=== PATIENT | male | born 1990 | race Caucasian/White ===

== ENCOUNTER 2018-09-01 04:53 | Emergency (ER) | payer BC ==
--- NOTE | 2018-09-01 05:37 | EDM.PDOC ---
ED HPI GENERAL MEDICAL PROBLEM - General Chief Complaint: Abdominal Pain Stated Complaint: RIGHT SIDE ABD PAIN Time Seen by Provider: 09/01/18 05:32 Source of Information: Reports: Patient History Limitations: Reports: No Limitations - History of Present Illness INITIAL COMMENTS - FREE TEXT/NARRATIVE: pt has pain in the rt lower abdoman. Earlier it started in his back and moved forward. He has not vomited and he has no pain when he voids. Onset: Today Duration: Hour(s):, Getting Worse, Other (pt is rating his pain as a 8. ) Location: Reports: Abdomen, Back Associated Symptoms: Reports: No Other Symptoms Treatments CRIMINAL INTELLIGENCE SPECIALIST: Reports: Other (see below) Other Treatments CRIMINAL INTELLIGENCE SPECIALIST: unknown Right Lower Abdomen Pain Score (Numeric/FACES): 8 - Related Data Allergies Allergy/AdvReac Type Severity Reaction Status Date / Time No Known Allergies Allergy Verified 09/01/18 05:14 Home Meds: Home Meds NK [No Known Home Meds] 09/01/18 [History] Past Medical History Musculoskeletal History: Reports: Fracture, Other (See Below) - Past Surgical History Musculoskeletal Surgical History: Reports: Other (See Below) Other Musculoskeletal Surgeries/Procedures:: left upper arm (humerus. Social & Family History - Tobacco Use Smoking Status *Q: Never Smoker Second Hand Smoke Exposure: No - Caffeine Use Caffeine Use: Reports: Coffee - Alcohol Use Days Per Week of Alcohol Use: 7 Number of Drinks Per Day: 2 Total Drinks Per Week: 14 - Recreational Drug Use Recreational Drug Use: No ED ROS GENERAL - Review of Systems Review Of Systems: See Below Constitutional: Reports: No Symptoms HEENT: Reports: No Symptoms Respiratory: Reports: No Symptoms Cardiovascular: Reports: No Symptoms Endocrine: Reports: No Symptoms GI/Abdominal: Reports: Abdominal Pain : Reports: No Symptoms Musculoskeletal: Reports: No Symptoms Skin: Reports: No Symptoms ED EXAM, RENAL/ - Physical Exam Exam: See Below Text/Narrative:: pt arrived with pain in the rt lower abdoman. This did start in the back area. Exam Limited By: No Limitations General Appearance: Alert, Anxious, Moderate Distress Ears: Normal TMs Nose: Normal Inspection Throat/Mouth: Normal Inspection Head: Atraumatic Neck: Normal Inspection Respiratory/Chest: No Respiratory Distress Cardiovascular: Regular Rate, Rhythm GI/Abdominal: Tender, Other (pt is most tender in the very lowrt over the bladder area. ) (Male) Exam: Deferred Rectal (Males) Exam: Deferred Back Exam: Normal Inspection Extremities: Normal Inspection Neurological: Alert, Oriented, Normal Cognition Course - Vital Signs Last Recorded V/S: Last Vital Signs Temp 35.6 C 09/01/18 05:10 Pulse 56 L 09/01/18 05:10 Resp 14 09/01/18 05:10 BP 117/65 09/01/18 05:10 Pulse Ox 97 09/01/18 05:10 - Orders/Labs/Meds Orders: Active Orders 24 hr Category Date Time Status Sodium Chloride 0.9% [Normal Saline] 1,000 ml Med 09/01/18 06:00 Ordered IV ASDIRECTED Medication Orders Sodium Chloride (Normal Saline) 1,000 mls @ 999 mls/hr IV ASDIRECTED RAFAELA Last Admin: 09/01/18 06:20 Dose: 999 mls/hr Labs: Laboratory Tests 09/01/18 09/01/18 09/01/18 Range/Units 05:26 05:26 05:26 WBC 7.4 (4.5-11.0) K/uL RBC 4.81 (4.30-5.90) M/uL Hgb 13.8 (12.0-15.0) g/dL Hct 41.3 (40.0-54.0) % MCV 86 (80-98) fL MCH 29 (27-31) pg MCHC 33 (32-36) % Plt Count 260 (150-400) K/uL Neut % (Auto) 58 (36-66) % Lymph % (Auto) 29 (24-44) % Dubois % (Auto) 10 H (2-6) % Eos % (Auto) 3 (2-4) % Baso % (Auto) 1 (0-1) % Sodium 136 L (140-148) mmol/L Potassium 4.1 (3.6-5.2) mmol/L Chloride 101 (100-108) mmol/L Carbon Dioxide 26 (21-32) mmol/L Anion Gap 13.1 (5.0-14.0) mmol/L BUN 17 (7-18) mg/dL Creatinine 1.0 (0.8-1.3) mg/dL Est Cr Clr Drug Dosing TNP Estimated GFR (MDRD) > 60 (>60) Glucose 95 (74-106) mg/dL Calcium 9.7 (8.5-10.1) mg/dL Total Bilirubin 0.4 (0.2-1.0) mg/dL AST 46 H (15-37) U/L ALT 97 H (12-78) U/L Alkaline Phosphatase 78 (46-116) U/L C-Reactive Protein (0.0-0.3) mg/dL Total Protein 8.5 H (6.4-8.2) g/dL Albumin 4.1 (3.4-5.0) g/dL Globulin 4.4 H (2.3-3.5) g/dL Albumin/Globulin Ratio 0.9 L (1.2-2.2) Urine Color Yellow Urine Appearance Clear Urine pH 5.0 (4.5-8.0) Ur Specific [place] 1.020 (1.008-1.030) Urine Protein Negative (NEGATIVE) mg/dL Urine Glucose (UA) Normal (NEGATIVE) mg/dL Urine Ketones Negative (NEGATIVE) mg/dL Urine Occult Blood Negative (NEGATIVE) Urine Nitrite Negative (NEGAITVE) Urine Bilirubin Negative (NEGATIVE) Urine Urobilinogen Normal (NORMAL) mg/dL Ur Leukocyte Esterase Negative (NEGATIVE) Urine RBC 0-5 (0-5) Urine WBC 0-5 (0-5) Ur Epithelial Cells Few Amorphous Sediment Not seen Urine Bacteria Few Urine Mucus Not seen 09/01/18 Range/Units 05:43 WBC (4.5-11.0) K/uL RBC (4.30-5.90) M/uL Hgb (12.0-15.0) g/dL Hct (40.0-54.0) % MCV (80-98) fL MCH (27-31) pg MCHC (32-36) % Plt Count (150-400) K/uL Neut % (Auto) (36-66) % Lymph % (Auto) (24-44) % Dubois % (Auto) (2-6) % Eos % (Auto) (2-4) % Baso % (Auto) (0-1) % Sodium (140-148) mmol/L Potassium (3.6-5.2) mmol/L Chloride (100-108) mmol/L Carbon Dioxide (21-32) mmol/L Anion Gap (5.0-14.0) mmol/L BUN (7-18) mg/dL Creatinine (0.8-1.3) mg/dL Est Cr Clr Drug Dosing Estimated GFR (MDRD) (>60) Glucose (74-106) mg/dL Calcium (8.5-10.1) mg/dL Total Bilirubin (0.2-1.0) mg/dL AST (15-37) U/L ALT (12-78) U/L Alkaline Phosphatase (46-116) U/L C-Reactive Protein 0.11 (0.0-0.3) mg/dL Total Protein (6.4-8.2) g/dL Albumin (3.4-5.0) g/dL Globulin (2.3-3.5) g/dL Albumin/Globulin Ratio (1.2-2.2) Urine Color Urine Appearance Urine pH (4.5-8.0) Ur Specific [place] (1.008-1.030) Urine Protein (NEGATIVE) mg/dL Urine Glucose (UA) (NEGATIVE) mg/dL Urine Ketones (NEGATIVE) mg/dL Urine Occult Blood (NEGATIVE) Urine Nitrite (NEGAITVE) Urine Bilirubin (NEGATIVE) Urine Urobilinogen (NORMAL) mg/dL Ur Leukocyte Esterase (NEGATIVE) Urine RBC (0-5) Urine WBC (0-5) Ur Epithelial Cells Amorphous Sediment Urine Bacteria Urine Mucus Meds: Medications Generic Name Dose Route Start Last Admin Trade Name Freq PRN Reason Stop Dose Admin Sodium Chloride 1,000 mls @ 999 mls/hr 09/01/18 06:00 09/01/18 06:20 Normal Saline IV 999 mls/hr ASDIRECTED RAFAELA Administration - Re-Assessments/Exams Free Text/Narrative Re-Assessment/Exam: 09/01/18 06:55 wbc was normal, liver enzymes are up slightly cat scan of the abdoman revealed multiple emlarged lymph nodes. Departure - Departure Time of Disposition: 06:57 Disposition: Home, Self-Care 01 Condition: Fair Clinical Impression: Mesenteric adenitis - Discharge Information Referrals: PCP,None [Primary Care Provider] - Forms: ED Department Discharge Care Plan Goals: tylenol or motrin for pain should resolve in the next 2-3 day. If persistent pain recheck . with liver changes cut back on etoh intake. - My Orders Last 24 Hours: My Active Orders 09/01/18 06:00 Sodium Chloride 0.9% [Normal Saline] 1,000 ml IV ASDIRECTED - Assessment/Plan Last 24 Hours: My Active Orders 09/01/18 06:00 Sodium Chloride 0.9% [Normal Saline] 1,000 ml IV ASDIRECTED
[2018-09-01] MEDS ORDERED: Sodium Chloride 0.9% 1,000 ML IV SCH (06:00)
--- NOTE | 2018-09-01 06:47 | CRLCT ---
INDICATION: Right lower abdominal pain. TECHNIQUE: A CT volumetric acquisition was performed of the abdomen and pelvis without IV contrast. FINDINGS: Lung bases are clear. There is no evidence of pleural or pericardial fluid. The patient`s liver and spleen demonstrate normal size. There is mild hepatic steatosis with an area of sparing of normal liver parenchyma adjacent to the huan hepatis. The pancreas appears normal. The adrenal glands have normal morphology. The kidneys are symmetric in size and there is no evidence of edema, hydronephrosis or calculus. The appendix is visualized in the right lower quadrant and appears normal and contains air. There are a few lymph nodes noted within the root of the small bowel mesentery particularly within the right lower quadrant. Changes may suggest mesenteric lymphadenitis accounting for the patient`s right lower quadrant pain. There is no evidence of obstruction within the small intestine or colon. There is no evidence of acute inflammatory change about the bowel loops. Prostate gland and urinary bladder appear normal. There is no evidence of an inguinal hernia. IMPRESSION: 1. Normal appearance of the appendix. There are few mildly enlarged lymph nodes noted within the is bowel mesentery particularly within the right lower quadrant and the findings could suggest mesenteric lymphadenitis. 2. Mild hepatic steatosis. Dictated by Estevan Jimenez MD @ 09/01/2018 6:45:54 AM Please note that all CT scans at this facility use dose modulation, iterative reconstruction, and/or weight-based dosing when appropriate to reduce radiation dose to as low as reasonably achievable. Dictated by: Estevan Jimenez MD @ 09/01/2018 06:45:59 (Electronically Signed)
== END 2018-09-01 07:12 | disposition home or self-care (01) ==
LOC: JP.ED 04:53
DX: I88.0 Nonspecific mesenteric lymphadenitis (principal)
CPT/HCPCS: 36415; 74176; 80053; 81001; 85025; 86140; 96360; 99284; J7030